=== PATIENT | female | born 1965 | race Two or more races ===

== ENCOUNTER 2023-10-12 14:13 | Emergency (ER) | payer OTHER ==
[~2023-10-12] VITALS: Ht 165.1 cm; Wt 109.1 kg
[2023-10-12 14:15] VITALS: TEMP 98.5
[2023-10-12] MEDS: IBUPROFEN 600 MG TABLET PO ONE (16:23)
[2023-10-12] MEDS ORDERED: ACET-66 PO (18:48)
[2023-10-12] MEDS ORDERED: IBUP-1554 PO (18:48)
[2023-10-12 19:44] VITALS: BP 136/65; PULSE 72; RESP 18
== END 2023-10-12 19:46 | disposition home or self-care (01) ==
LOC: EMS 14:21
DX: S63.501A Unspecified sprain of right wrist, initial encounter (principal); Z90.49 Acquired absence of other specified parts of digestive tract; Z98.51 Tubal ligation status; X58.XXXA Exposure to other specified factors, initial encounter; Y93.89 Activity, other specified; Y92.89 Other specified places as the place of occurrence of the external cause; Y99.8 Other external cause status
CPT/HCPCS: 99283